=== PATIENT | female | born 1995 | race Caucasian/White ===

== ENCOUNTER 2017-01-16 04:05 | Emergency (ER) | payer OTHER ==
[~2017-01-16] VITALS: Ht 152.4 cm; Wt 52.6 kg
[2017-01-16 04:06] VITALS: BP 126/79; PULSE 96; RESP 18; TEMP 98; O2SAT 98
--- NOTE | 2017-01-16 04:06 | NUR ---
Brought in by Officer in custody for blood alcohol draw. Patient to ER bed 2.
--- NOTE | 2017-01-16 04:10 | NUR ---
Patient brought in by [facility] for blood alcohol draw. Per [facility] officer, patient "was pulled over for swerving in the [place]" Patien tdenies any medical complaints. No signs of acute distress.
--- NOTE | 2017-01-16 04:17 | NUR ---
Written and verbal consent obtained from patient for blood alcohol, name and verified by patient. Disinfected patient's skin with iodine that did not contain alcohol or other volatile organic compound. Collected the blood from the subject named by venipuncture, in the presence of Officer [id number]. Used a sterile, dry hypodermic needle and dry vacuum blood collection. The dry vacuum blood collection was supplied by the officer named above. Withdrew a specimen of blood from left antecubital vein of the subject named above. Inverted the blood tube several times to ensure that the preservative and anticoagulant were thoroughly mixed in the blood specimen. I initialed the blood tube label for identification. The labeled blood tube was handed directly to the Officer named above. The blood tube stopper remained in place while I had possession of the blood tube. The Officer placed tube into envelope and sealed it in my presence. Envelope initialed by myself and Officer named above. Patient tolerated well, bandage applied, and bleeding controlled.
[2017-01-16 04:25] VITALS: BP 126/79; PULSE 96; RESP 18; TEMP 98; O2SAT 98
--- NOTE | 2017-01-16 04:25 | NUR ---
Patient discharged in custody of [facility] and verbalizes understanding. Patient in stable condition. ID arm band removed. Patient educated on pain management and to follow up with PMD. Pain Scale 0/10. Opportunity for questions provided and answered.
== END 2017-01-16 04:25 ==
LOC: EDBD 04:05 → SED 04:05
DX: Z02.89 Encounter for other administrative examinations (principal)